=== PATIENT | male | born 1975 | race Two or more races ===

== ENCOUNTER 2017-03-27 09:24 | Emergency (ER) | payer MEDICAID, OTHER ==
[~2017-03-27] VITALS: Ht 180.3 cm; Wt 81.6 kg
[2017-03-27 09:47] VITALS: BP 130/85
== END 2017-03-27 12:05 | disposition home or self-care (01) ==
LOC: ER 09:25
DX: S56.911A Strain of unspecified muscles, fascia and tendons at forearm level, right arm, initial encounter (principal); X58.XXXA Exposure to other specified factors, initial encounter; Y93.89 Activity, other specified; Y99.0 Civilian activity done for income or pay; Y92.69 Other specified industrial and construction area as the place of occurrence of the external cause
CPT/HCPCS: 73060; 73090

== ENCOUNTER 2021-04-19 08:17 | Emergency (ER) | payer MEDICAID, OTHER ==
[~2021-04-19] VITALS: Ht 177.8 cm; Wt 81.6 kg
[2021-04-19 08:42] VITALS: BP 98/74
[2021-04-19] MEDS ORDERED: methylPREDNISolone SOD SUCC 125 MG/2 ML VL IM ONE (09:00)
== END 2021-04-19 09:31 | disposition home or self-care (01) ==
LOC: ER 08:17
DX: R21 Rash and other nonspecific skin eruption (principal); F17.210 Nicotine dependence, cigarettes, uncomplicated
CPT/HCPCS: 96372; 99283; J2930